=== PATIENT | female | born 2000 | race Caucasian/White ===

== ENCOUNTER 2018-06-30 18:45 | Emergency (ER) | payer MEDICAID, OTHER ==
[~2018-06-30] VITALS: Ht 175.3 cm; Wt 95.0 kg
[~2018-06-30 18:45] MED LIST: ONDA8TAB9 PO
[2018-06-30 18:52] VITALS: BP 136/76
--- NOTE | 2018-06-30 19:55 | NUR ---
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
[2018-06-30] MEDS ORDERED: DICL50TA8 PO (20:38)
[2018-06-30] MEDS ORDERED: ibuprofen tablet 400 MG TABLET PO ONE (20:40)
== END 2018-06-30 21:06 | disposition home or self-care (01) ==
LOC: ER 18:46
DX: M25.561 Pain in right knee (principal); Z88.8 Allergy status to other drugs, medicaments and biological substances; Z79.899 Other long term (current) drug therapy; W17.89XA Other fall from one level to another, initial encounter; Y93.23 Activity, snow (alpine) (downhill) skiing, snowboarding, sledding, tobogganing and snow tubing; Y92.89 Other specified places as the place of occurrence of the external cause; Y99.8 Other external cause status
CPT/HCPCS: 29505; 73564; 99283

== ENCOUNTER 2018-07-01 09:44 | Emergency (ER) | payer MEDICAID ==
[~2018-07-01] VITALS: Ht 175.3 cm; Wt 79.5 kg
[~2018-07-01 09:44] MED LIST changes: +DICL50TA8 PO
[2018-07-01 09:47] VITALS: BP 125/81
== END 2018-07-01 10:15 | disposition home or self-care (01) ==
LOC: ER 09:46
DX: S83.91XA Sprain of unspecified site of right knee, initial encounter (principal); Z88.8 Allergy status to other drugs, medicaments and biological substances; Z79.899 Other long term (current) drug therapy; W17.89XA Other fall from one level to another, initial encounter; Y93.89 Activity, other specified; Y92.89 Other specified places as the place of occurrence of the external cause; Y99.8 Other external cause status
CPT/HCPCS: 99281

== ENCOUNTER 2018-07-11 00:13 | Emergency (ER) | payer MEDICAID ==
[~2018-07-11] VITALS: Ht 172.7 cm; Wt 96.0 kg
[2018-07-11 02:02] VITALS: BP 107/69
== END 2018-07-11 03:25 | disposition home or self-care (01) ==
LOC: ER 00:14
DX: J06.9 Acute upper respiratory infection, unspecified (principal); R42 Dizziness and giddiness; Z88.8 Allergy status to other drugs, medicaments and biological substances; Z79.899 Other long term (current) drug therapy
CPT/HCPCS: 93005; 99284

== ENCOUNTER 2018-09-24 17:26 | Emergency (ER) | payer MEDICAID ==
[~2018-09-24] VITALS: Ht 175.3 cm; Wt 81.4 kg
[~2018-09-24 17:26] MED LIST changes: +BISA-155 PO; +ONDA8TAB6 PO; +PANT-47 PO
[2018-09-24 17:46] VITALS: BP 122/81
== END 2018-09-24 18:34 | disposition home or self-care (01) ==
LOC: ER 17:27
DX: S60.212A Contusion of left wrist, initial encounter (principal); I49.9 Cardiac arrhythmia, unspecified; Z88.8 Allergy status to other drugs, medicaments and biological substances; Z79.899 Other long term (current) drug therapy; W16.012A Fall into swimming pool striking water surface causing other injury, initial encounter; Y93.89 Activity, other specified; Y92.89 Other specified places as the place of occurrence of the external cause; Y99.8 Other external cause status
CPT/HCPCS: 29125; 73110; 99283

== ENCOUNTER 2018-11-13 22:02 | Emergency (ER) | payer MEDICAID ==
[~2018-11-13] VITALS: Ht 175.3 cm; Wt 100.1 kg
[2018-11-13] MEDS ORDERED: dexamethasone sod phosphate 10mg/ml inj IV STA (23:08)
[2018-11-13] MEDS ORDERED: famotidine/PF 10 mg/ml inj IV ONE (23:10)
[2018-11-13] MEDS ORDERED: epiNEPHrine 1 mg/ml inj SQ PRN (23:10)
[2018-11-14] MEDS ORDERED: tranexamic acid inj. 1,000 MG in normal saline 100ml IV soln 100 ML IV ONE (00:35)
[2018-11-14] MEDS ORDERED: PRED20TA PO (01:57)
[2018-11-14] MEDS ORDERED: EPIN0.3P3 IM (02:04)
[2018-11-14] MEDS ORDERED: ondansetron 4mg rapidly disintigrating tab PO ONE (02:15)
[2018-11-14 02:39] VITALS: BP 119/72
== END 2018-11-14 02:43 | disposition home or self-care (01) ==
LOC: ER 22:04
DX: T78.1XXA Other adverse food reactions, not elsewhere classified, initial encounter (principal); I49.9 Cardiac arrhythmia, unspecified; Z88.8 Allergy status to other drugs, medicaments and biological substances; Z79.899 Other long term (current) drug therapy; X58.XXXA Exposure to other specified factors, initial encounter
CPT/HCPCS: 96365; 96372; 96375; 99283; J0171; J1100; J2405; J3490

== ENCOUNTER 2018-11-14 22:19 | Emergency (ER) | payer MEDICAID ==
[~2018-11-14] VITALS: Ht 175.3 cm; Wt 99.8 kg
[~2018-11-14 22:19] MED LIST changes: +EPIN0.3P3 IM; +PRED20TA PO
[2018-11-14 22:22] VITALS: BP 120/64
== END 2018-11-15 01:17 | disposition home or self-care (01) ==
LOC: ER 22:20
DX: K14.8 Other diseases of tongue (principal); I49.9 Cardiac arrhythmia, unspecified; Z88.8 Allergy status to other drugs, medicaments and biological substances; Z79.899 Other long term (current) drug therapy
CPT/HCPCS: 99281

== ENCOUNTER 2019-06-24 17:55 | Emergency (ER) | payer MEDICAID ==
[~2019-06-24] VITALS: Ht 172.7 cm; Wt 95.0 kg
[~2019-06-24 17:55] MED LIST changes: -PRED20TA PO
[2019-06-24 18:30] LABS: BASOPHILS % (AUTO) 0.5 % (0-1); EOSINOPHILS % (AUTO) 0.5 % (0-6); HEMATOCRIT 38.7 % (35.0-45.0); HEMOGLOBIN 13.3 g/dl (12.0-16.0); LYMPHOCYTES # (AUTO) 1.8 X10'3 (1.1-4.8); LYMPHOCYTES % (AUTO) 22.6 % (21-51); MEAN CORPUSCULAR HEMOGLOBIN 28.3 PG (27.0-31.0); MEAN CORPUSCULAR HGB CONC 34.2 g/dL (33.0-36.5); MEAN CORPUSCULAR VOLUME 82.7 FL (78-98); MEAN PLATELET VOLUME 8.7 FL (7.4-10.4); MONOCYTES # (AUTO) 0.5 X10'3 (0-0.9); MONOCYTES % (AUTO) 6.2 % (2-12); NEUTROPHILS # (AUTO) 5.7 X10'3 (1.8-7.7); NEUTROPHILS % (AUTO) 70.2 % (42-75); PLATELET COUNT 380 X10'3 (140-440); RED BLOOD COUNT 4.68 X10'6 (4.20-5.60); RED CELL DISTRIBUTION WIDTH 13.6 % (11.5-14.5); WHITE BLOOD COUNT 8.2 X10'3 (4.5-11.0)
[2019-06-24 18:52] LABS: ALANINE AMINOTRANSFERASE 29 U/L (12-78); ALKALINE PHOSPHATASE 85 IU/L (20-180); ANION GAP 11 (8-16); ASPARTATE AMINO TRANSFERASE 20 U/L (10-37); BILIRUBIN,TOTAL 0.4 MG/DL (0.1-1.0); BLOOD UREA NITROGEN 17 MG/DL (7-18); BUN/CREATININE RATIO 16.8 (6.6-38.0); CALCIUM 9.7 MG/DL (8.5-10.1); CHLORIDE 106 MMOL/L (99-107); CREATININE 1.01 MG/DL (0.40-0.90); GLUCOSE 84 MG/DL (70-104); LIPASE 130 U/L (73-393); POTASSIUM 3.8 MMOL/L (3.5-5.1); SODIUM 144 MMOL/L (135-145); TOTAL CARBON DIOXIDE 27.5 MMOL/L (24-32); TOTAL PROTEIN 7.9 G/DL (6.4-8.2); eGFR 70 ML/MIN
[2019-06-24 19:01] LABS: CLARITY,URINE CLEAR (Clear); COLOR,URINE YELLOW (Yellow); GLUCOSE, URINE NEGATIVE (Neg); KETONES,URINE NEGATIVE (Neg); LEUKOCYTE ESTERASE ,URINE NEGATIVE (Neg); NITRITES, URINE NEGATIVE (Neg); OCCULT BLOOD,URINE NEGATIVE (Neg); PROTEIN,URINE NEGATIVE (Neg); URINE HCG NEGATIVE (NEG); UROBILINOGEN,URINE 0.2 E.U/dL (0.2-1.0)
[2019-06-24 19:02] LABS: UA COLLECTION TYPE CLN CATCH MIDSTREAM
[2019-06-24] MEDS ORDERED: normal saline 1000ML IV soln IVB ONE (20:25)
[2019-06-24] MEDS ORDERED: ketorolac tromethamine 15mg/ml inj. IV ONE (20:35)
[2019-06-24] MEDS ORDERED: acetaminophen 325mg tablet PO ONE (20:35)
[2019-06-24] MEDS ORDERED: iohexol 300mg/ml 100ml inj. ONE (20:44)
[2019-06-24 22:50] VITALS: BP 101/57
== END 2019-06-24 22:52 | disposition home or self-care (01) ==
LOC: ER 17:57
DX: R10.31 Right lower quadrant pain (principal); Z88.8 Allergy status to other drugs, medicaments and biological substances; Z79.899 Other long term (current) drug therapy
CPT/HCPCS: 36415; 74177; 80053; 81003; 81025; 83690; 85025; 96374; 99285; J1885; J7030; Q9967; 99283

== ENCOUNTER 2020-10-06 19:25 | Inpatient (IN) | payer MEDICAID ==
[~2020-10-06] VITALS: Ht 172.7 cm; Wt 101.6 kg
[2020-10-06] MEDS ORDERED: temazepam 15mg capsule PO PRN (21:00)
[2020-10-06] MEDS ORDERED: iohexol 350MG/ML 100ml bottle IV ONE (22:00)
[2020-10-06 22:02] LABS: BASOPHILS % (AUTO) 0.3 % (0-1); EOSINOPHILS # (AUTO) 0.1 X10'3 (0-0.9); EOSINOPHILS % (AUTO) 0.8 % (0-6); HEMATOCRIT 37.9 % (35.0-45.0); HEMOGLOBIN 12.9 g/dl (12.0-16.0); LYMPHOCYTES # (AUTO) 2.1 X10'3 (1.1-4.8); MEAN CORPUSCULAR HEMOGLOBIN 28.6 PG (27.0-31.0); MEAN CORPUSCULAR HGB CONC 34.1 g/dL (33.0-36.5); MEAN CORPUSCULAR VOLUME 83.8 FL (78-98); MEAN PLATELET VOLUME 8.7 FL (7.4-10.4); MONOCYTES # (AUTO) 0.6 X10'3 (0-0.9); MONOCYTES % (AUTO) 8.3 % (2-12); NEUTROPHILS # (AUTO) 4.6 X10'3 (1.8-7.7); NEUTROPHILS % (AUTO) 62.6 % (42-75); PLATELET COUNT 345 X10'3 (140-440); RED BLOOD COUNT 4.52 X10'6 (4.20-5.60); RED CELL DISTRIBUTION WIDTH 13.3 % (11.5-14.5); WHITE BLOOD COUNT 7.3 X10'3 (4.5-11.0)
--- NOTE | 2020-10-06 22:10 | NUR ---
PT TO CT
[2020-10-06 22:11] LABS: ALANINE AMINOTRANSFERASE 13 U/L (12-78); ALBUMIN 3.1 G/DL (3.4-5.0); ALBUMIN/GLOBULIN RATIO 0.8 (1.1-1.5); ALKALINE PHOSPHATASE 61 IU/L (46-116); ANION GAP 7 (8-16); ASPARTATE AMINO TRANSFERASE 14 U/L (10-37); BILIRUBIN,TOTAL 0.2 MG/DL (0.1-1.0); BLOOD UREA NITROGEN 17 MG/DL (7-18); BUN/CREATININE RATIO 19.8 (6.6-38.0); CALCIUM 8.7 MG/DL (8.5-10.1); CHLORIDE 108 MMOL/L (99-107); CREATININE 0.86 MG/DL (0.40-0.90); GLUCOSE 101 MG/DL (70-104); POTASSIUM 3.7 MMOL/L (3.5-5.1); SODIUM 141 MMOL/L (135-145); TOTAL CARBON DIOXIDE 25.7 MMOL/L (24-32); TOTAL PROTEIN 7.2 G/DL (6.4-8.2); eGFR 83 ML/MIN
[2020-10-06] MEDS ORDERED: meclizine 12.5mg tablet PO ONE (22:30)
[2020-10-06] MEDS ORDERED: ketorolac tromethamine 15mg/ml inj. IV ONE (22:30)
[2020-10-06] MEDS ORDERED: aspirin 325mg tablet PO ONE (23:00)
[2020-10-06 23:02] LABS: HCG SERUM QL NEGATIVE
[2020-10-06] MEDS ORDERED: magnesium hydroxide 30ml (MOM) UD suspension PO PRN (23:30)
[2020-10-06] MEDS ORDERED: acetaminophen 650mg rectal suppository RC PRN (23:30)
[2020-10-06] MEDS ORDERED: ondansetron/PF 4mg/2ml inj IV PRN (23:30)
[2020-10-06] MEDS ORDERED: diphenhydrAMINE 50 mg/ml inj IV PRN (23:30)
[2020-10-06] MEDS ORDERED: mag hydrox/Alum hydrox/simeth 30ml oral suspension PO PRN (23:30)
[2020-10-06] MEDS ORDERED: bisacodyl 10mg suppository rectal RC PRN (23:30)
[2020-10-06] MEDS ORDERED: HYDROcodone/acetaminophen 5mg/325mg tablet PO PRN (23:30)
[2020-10-06] MEDS ORDERED: diphenhydrAMINE 25mg capsule PO PRN (23:30)
[2020-10-06] MEDS ORDERED: acetaminophen 325mg tablet PO PRN ×2 (23:30)
[2020-10-06] MEDS ORDERED: morphine 2 MG/ML inj. syringe IV PRN ×2 (23:30)
[2020-10-06] MEDS ORDERED: ondansetron 4mg rapidly disintigrating tab PO PRN (23:30)
--- NOTE | 2020-10-06 23:30 | NUR ---
C COLLAR REMOVED PER LILLIAN CARDOSO.
[2020-10-06 23:39] LABS: CLARITY,URINE CLEAR (Clear); COLOR,URINE YELLOW (Yellow); GLUCOSE, URINE NEGATIVE (Neg); KETONES,URINE NEGATIVE (Neg); LEUKOCYTE ESTERASE ,URINE NEGATIVE (Neg); NITRITES, URINE NEGATIVE (Neg); OCCULT BLOOD,URINE NEGATIVE (Neg); PH,URINE 6.5 (4.8-8.0); PROTEIN,URINE NEGATIVE (Neg); UROBILINOGEN,URINE 0.2 E.U/dL (0.2-1.0)
[2020-10-06 23:40] LABS: UA COLLECTION TYPE NON-SPECIFIED
[2020-10-06 23:47] LABS: PARTIAL THROMBOPLASTIN TIME 27 SECONDS (22-32)
[2020-10-06] MEDS: normal saline 1000ml 1,000 ML IV SCH (23:49)
[2020-10-06 23:50] LABS: HEMOGLOBIN A1C 5.4 % (4.5-6.2)
[2020-10-07 00:04] LABS: URINE AMPHETAMINE SCREEN NEGATIVE (Neg); URINE BARBITUATE SCREEN NEGATIVE (Neg); URINE BENZODIAZEPINES SCREEN NEGATIVE (Neg); URINE CANNABINOID SCREEN NEGATIVE (Neg); URINE COCAINE SCREEN NEGATIVE (Neg); URINE METHADONE SCREEN NEGATIVE (Neg); URINE OPIATE SCREEN NEGATIVE (Neg); URINE PHENCYCLIDINE SCREEN NEGATIVE (Neg)
[2020-10-07 00:06] LABS: ETHANOL < 0.010 GM/DL (0.0-0.010); MAGNESIUM 1.8 MG/DL (1.5-2.4); PHOSPHORUS 2.6 MG/DL (2.3-4.5)
[2020-10-07 03:43] LABS: BASOPHILS % (AUTO) 0.3 % (0-1); EOSINOPHILS # (AUTO) 0.1 X10'3 (0-0.9); EOSINOPHILS % (AUTO) 0.8 % (0-6); HEMATOCRIT 34.9 % (35.0-45.0); HEMOGLOBIN 11.7 g/dl (12.0-16.0); LYMPHOCYTES % (AUTO) 30.3 % (21-51); MEAN CORPUSCULAR HGB CONC 33.6 g/dL (33.0-36.5); MEAN CORPUSCULAR VOLUME 83.3 FL (78-98); MEAN PLATELET VOLUME 8.9 FL (7.4-10.4); MONOCYTES # (AUTO) 0.5 X10'3 (0-0.9); MONOCYTES % (AUTO) 7.6 % (2-12); NEUTROPHILS # (AUTO) 4.1 X10'3 (1.8-7.7); PLATELET COUNT 320 X10'3 (140-440); RED BLOOD COUNT 4.19 X10'6 (4.20-5.60); WHITE BLOOD COUNT 6.7 X10'3 (4.5-11.0)
[2020-10-07 03:44] LABS: ALANINE AMINOTRANSFERASE 13 U/L (12-78); ALBUMIN 2.8 G/DL (3.4-5.0); ALBUMIN/GLOBULIN RATIO 0.7 (1.1-1.5); ALKALINE PHOSPHATASE 57 IU/L (46-116); ANION GAP 6 (8-16); ASPARTATE AMINO TRANSFERASE 13 U/L (10-37); BILIRUBIN,TOTAL 0.2 MG/DL (0.1-1.0); BLOOD UREA NITROGEN 17 MG/DL (7-18); BUN/CREATININE RATIO 18.1 (6.6-38.0); CALCIUM 8.3 MG/DL (8.5-10.1); CHLORIDE 107 MMOL/L (99-107); CHOL/HDL RATIO 2.7 (0.00-4.99); CHOLESTEROL 148 MG/DL (0-200); CREATININE 0.94 MG/DL (0.40-0.90); GLUCOSE 94 MG/DL (70-104); HDL CHOLESTEROL 54 MG/DL (35-60); LDL CHOLESTEROL 79 MG/DL (50-100); POTASSIUM 3.7 MMOL/L (3.5-5.1); SODIUM 139 MMOL/L (135-145); TOTAL CARBON DIOXIDE 25.8 MMOL/L (24-32); TOTAL PROTEIN 6.6 G/DL (6.4-8.2); TRIGLYCERIDES 81 MG/DL (20-135); eGFR 74 ML/MIN
--- NOTE | 2020-10-07 06:58 | NUR ---
Patient in room ED 10. I have received report from JOHN MCPHERSON IN ED and had the opportunity to ask questions and assume patient care. PT GOING TO ROOM [id number]
[2020-10-07 07:30] VITALS: BP 111/61
[2020-10-07] MEDS ORDERED: docusate sod 100mg capsule PO SCH (08:00)
[2020-10-07] MEDS ORDERED: heparin, porcine 5000 units/ml vial SQ SCH (08:00)
[2020-10-07] MEDS ORDERED: PERFLUTREN PROTEIN-A MICROSPHR (Optison) 0.22 MG/ML 3ML VIAL IV ONE (08:25)
[2020-10-07] MEDS ORDERED: atorvastatin 20mg tablet PO SCH (08:25)
[2020-10-07] MEDS: aspirin 81mg tablet.DR PO SCH ×2 (08:25→08:30)
[2020-10-07] MEDS: normal saline 1000ml 1,000 ML IV SCH (09:30)
[2020-10-07] MEDS ORDERED: meclizine 12.5mg tablet PO PRN ×2 (09:55→10:04)
[2020-10-07] MEDS ORDERED: PROC10TA10 PO (09:58)
[2020-10-07] MEDS ORDERED: DIPH-1055 PO (09:58)
[2020-10-07] MEDS ORDERED: ETHI1TAB31 PO (09:58)
[2020-10-07] MEDS ORDERED: MEDR10TA10 PO (09:58)
[2020-10-07] MEDS ORDERED: ESTR1TAB28 PO (09:58)
[2020-10-07] MEDS ORDERED: NORE1PAT7 TOP (09:58)
[2020-10-07] MEDS ORDERED: MECL-159 PO (09:58)
[2020-10-07] MEDS ORDERED: ONDA4TAB12 PO (09:58)
[2020-10-07 10:00] VITALS: BP 104/45
[2020-10-07] MEDS ORDERED: non-formulary drug (Meclizine HCl 1 TAB) PO PRN (10:05)
--- NOTE | 2020-10-07 13:18 | NUR ---
D/C INSTRUCTIONS GIVEN, QUESTIONS. BELONGINGS GATHERED BY PT AND SENT WITH PT. IV D/C'D, CANNULA INTACT, NO COMPLICATIONS. D/C'D PT IN STABLE CONDITION TO HOME IN PRIVATE VEHICLE ACCOMPANIED BY BROTHER. PT LEFT FLOOR AT 1305.
== END 2020-10-07 13:05 | disposition home or self-care (01) | DRG 111 ==
LOC: ER 19:26 → ED HOLD 23:30 → ORTHO 4S 10-07 07:00
PROVIDERS: ADMIT Family Medicine; ATTEND Family Medicine
PROC: BW281ZZ Computerized Tomography (CT Scan) of Head using Low Osmolar Contrast (ICD-10-PCS; principal; 2020-10-06)
DX: H81.10 Benign paroxysmal vertigo, unspecified ear (principal); N17.9 Acute kidney failure, unspecified; W01.0XXA Fall on same level from slipping, tripping and stumbling without subsequent striking against object, initial encounter; Y93.89 Activity, other specified; Y92.89 Other specified places as the place of occurrence of the external cause; Y99.8 Other external cause status; Z82.3 Family history of stroke; Z88.8 Allergy status to other drugs, medicaments and biological substances
CPT/HCPCS: 36415; 70496; 70498; 70551; 80053; 80061; 80305; 80320; 81003; 83036; 83735; 83880; 84100; 84443; 84703; 85025; 85379; 85610; 85730; 93005; 93306; 99285; G0378; J1644; J1885; J7030; J8597; Q9967

== ENCOUNTER 2020-12-23 20:40 | Emergency (ER) | payer MEDICAID ==
[~2020-12-23] VITALS: Ht 172.7 cm; Wt 104.5 kg
[~2020-12-23 20:40] MED LIST changes: -BISA-155 PO; -DICL50TA8 PO; +DIPH-1055 PO; -EPIN0.3P3 IM; +ESTR1TAB28 PO; +ETHI1TAB31 PO; +MECL-159 PO; +MEDR10TA10 PO; +NORE1PAT7 TOP; +ONDA4TAB12 PO; -ONDA8TAB6 PO; -ONDA8TAB9 PO; -PANT-47 PO; +PROC10TA10 PO
[2020-12-23 21:31] LABS: BASOPHILS # (AUTO) 0.1 X10'3 (0-0.2); BASOPHILS % (AUTO) 0.7 % (0-1); EOSINOPHILS # (AUTO) 0.1 X10'3 (0-0.9); EOSINOPHILS % (AUTO) 0.8 % (0-6); HEMATOCRIT 39.3 % (35.0-45.0); HEMOGLOBIN 13.1 g/dl (12.0-16.0); LYMPHOCYTES # (AUTO) 2.3 X10'3 (1.1-4.8); LYMPHOCYTES % (AUTO) 29.5 % (21-51); MEAN CORPUSCULAR HEMOGLOBIN 28.3 PG (27.0-31.0); MEAN CORPUSCULAR HGB CONC 33.4 g/dL (33.0-36.5); MEAN CORPUSCULAR VOLUME 84.7 FL (78-98); MEAN PLATELET VOLUME 8.6 FL (7.4-10.4); MONOCYTES # (AUTO) 0.4 X10'3 (0-0.9); MONOCYTES % (AUTO) 5.6 % (2-12); NEUTROPHILS % (AUTO) 63.4 % (42-75); PLATELET COUNT 398 X10'3 (140-440); RED BLOOD COUNT 4.64 X10'6 (4.20-5.60); RED CELL DISTRIBUTION WIDTH 12.9 % (11.5-14.5); WHITE BLOOD COUNT 7.8 X10'3 (4.5-11.0)
--- NOTE | 2020-12-23 21:35 | NUR ---
Success A new connect request was successfully created for: SONJA TRENTON : 2000 ConnectID: [id number] REASON: Code Stroke TLKW less than 4.5 hours ACUITY: Acuity Level 1 SUBMITTED: 12/23/2020 21:34 PDT
[2020-12-23 21:44] LABS: PARTIAL THROMBOPLASTIN TIME 26 SECONDS (22-32)
[2020-12-23 21:46] LABS: ALANINE AMINOTRANSFERASE 36 U/L (12-78); ALKALINE PHOSPHATASE 103 IU/L (46-116); ANION GAP 9 (8-16); ASPARTATE AMINO TRANSFERASE 28 U/L (10-37); BILIRUBIN,TOTAL 0.3 MG/DL (0.1-1.0); BLOOD UREA NITROGEN 17 MG/DL (7-18); BUN/CREATININE RATIO 18.1 (6.6-38.0); CHLORIDE 107 MMOL/L (99-107); CREATININE 0.94 MG/DL (0.40-0.90); GLUCOSE 105 MG/DL (70-104); SODIUM 142 MMOL/L (135-145); TOTAL CARBON DIOXIDE 25.6 MMOL/L (24-32); TOTAL PROTEIN 8.1 G/DL (6.4-8.2); eGFR 74 ML/MIN
[2020-12-23 21:49] LABS: TROPONIN I < 0.04 NG/ML (0.0-0.05)
[2020-12-23 21:50] LABS: POTASSIUM 3.4 MMOL/L (3.5-5.1)
[2020-12-23] MEDS ORDERED: ketorolac tromethamine 15mg/ml inj. IV ONE (21:55)
[2020-12-23] MEDS ORDERED: proCHLORperazine 10 MG/2 ml inj IV ONE (21:55)
[2020-12-23] MEDS ORDERED: normal saline 1000ml 1,000 ML IV ONE (21:55)
[2020-12-23] MEDS ORDERED: diphenhydrAMINE 50 mg/ml inj IV ONE (21:55)
[2020-12-23] MEDS ORDERED: SCOP1PAT11 TOP (22:18)
[2020-12-23] MEDS ORDERED: SUMAtriptan succ. 6 MG/0.5ml vial SQ ONE (23:10)
--- NOTE | 2020-12-23 23:24 | NUR ---
patient received medication see mar, patient vs wnl, patient acknowledged understanding and knows to [employer] rx at pharmacy. patient dc home with her brother her ride.
[2020-12-23 23:25] VITALS: BP 122/78
== END 2020-12-23 23:26 | disposition home or self-care (01) ==
LOC: ER 20:41
DX: R51.9 Headache, unspecified (principal); R06.02 Shortness of breath; R20.2 Paresthesia of skin; R42 Dizziness and giddiness; R53.1 Weakness; R07.89 Other chest pain; Z88.8 Allergy status to other drugs, medicaments and biological substances; Z79.899 Other long term (current) drug therapy
CPT/HCPCS: 36415; 70450; 71045; 80053; 84484; 85025; 85610; 85730; 93005; 96361; 96372; 96374; 96375; 99291; J0780; J1200; J1885; J7030; J3030

== ENCOUNTER 2021-05-31 10:14 | Emergency (ER) | payer MEDICAID ==
[~2021-05-31] VITALS: Ht 170.2 cm; Wt 97.7 kg
[~2021-05-31 10:14] MED LIST changes: +SCOP1PAT11 TOP
[2021-05-31 10:21] VITALS: BP 126/60
[2021-05-31 10:55] LABS: BASOPHILS % (AUTO) 0.5 % (0-1); HEMATOCRIT 38.9 % (35.0-45.0); LYMPHOCYTES # (AUTO) 1.4 X10'3 (1.1-4.8); LYMPHOCYTES % (AUTO) 29.8 % (21-51); MEAN CORPUSCULAR HEMOGLOBIN 27.9 PG (27.0-31.0); MEAN CORPUSCULAR HGB CONC 33.4 g/dL (33.0-36.5); MEAN CORPUSCULAR VOLUME 83.5 FL (78-98); MEAN PLATELET VOLUME 8.3 FL (7.4-10.4); MONOCYTES # (AUTO) 0.4 X10'3 (0-0.9); MONOCYTES % (AUTO) 8.4 % (2-12); NEUTROPHILS # (AUTO) 2.8 X10'3 (1.8-7.7); NEUTROPHILS % (AUTO) 60.3 % (42-75); PLATELET COUNT 383 X10'3 (140-440); RED BLOOD COUNT 4.66 X10'6 (4.20-5.60); RED CELL DISTRIBUTION WIDTH 13.1 % (11.5-14.5); WHITE BLOOD COUNT 4.7 X10'3 (4.5-11.0)
[2021-05-31 11:02] LABS: CLARITY,URINE CLEAR (Clear); COLOR,URINE YELLOW (Yellow); GLUCOSE, URINE NEGATIVE (Neg); KETONES,URINE NEGATIVE (Neg); LEUKOCYTE ESTERASE ,URINE NEGATIVE (Neg); NITRITES, URINE NEGATIVE (Neg); OCCULT BLOOD,URINE NEGATIVE (Neg); PROTEIN,URINE NEGATIVE (Neg); URINE HCG NEGATIVE (NEG); UROBILINOGEN,URINE 0.2 E.U/dL (0.2-1.0)
[2021-05-31 11:07] LABS: UA COLLECTION TYPE CLN CATCH MIDSTREAM
[2021-05-31 11:08] LABS: ALANINE AMINOTRANSFERASE 29 U/L (12-78); ALBUMIN 3.8 G/DL (3.4-5.0); ALBUMIN/GLOBULIN RATIO 0.9 (1.1-1.5); ALKALINE PHOSPHATASE 90 IU/L (46-116); ANION GAP 10 (8-16); ASPARTATE AMINO TRANSFERASE 20 U/L (10-37); BILIRUBIN,TOTAL 0.6 MG/DL (0.1-1.0); BLOOD UREA NITROGEN 17 MG/DL (7-18); BUN/CREATININE RATIO 20.5 (6.6-38.0); CALCIUM 8.9 MG/DL (8.5-10.1); CHLORIDE 104 MMOL/L (99-107); CREATININE 0.83 MG/DL (0.40-0.90); GLUCOSE 89 MG/DL (70-104); SODIUM 140 MMOL/L (135-145); TOTAL CARBON DIOXIDE 26.3 MMOL/L (24-32); TOTAL PROTEIN 7.9 G/DL (6.4-8.2); eGFR 86 ML/MIN
[2021-05-31] MEDS ORDERED: normal saline 1000ML IV soln IVB ONE (12:15)
[2021-05-31] MEDS ORDERED: meclizine 12.5mg tablet PO ONE (12:15)
[2021-05-31] MEDS ORDERED: proCHLORperazine 10 MG/2 ml inj IV ONE (12:15)
[2021-05-31] MEDS ORDERED: pantoprazole 40MG/D5 100ML BAG 100 ML IV ONE (12:15)
[2021-05-31] MEDS ORDERED: pantoprazole 40MG/NS 100ML BAG 100 ML IV ONE (13:10)
== END 2021-05-31 14:52 | disposition home or self-care (01) ==
LOC: ER 10:15
DX: R42 Dizziness and giddiness (principal); R11.10 Vomiting, unspecified; Z86.69 Personal history of other diseases of the nervous system and sense organs; Z88.8 Allergy status to other drugs, medicaments and biological substances; Z79.899 Other long term (current) drug therapy
CPT/HCPCS: 36415; 80053; 81003; 81025; 85025; 96361; 96374; 96375; 99284; C9113; J0780; J7030; J8597